=== PATIENT | male | born 1960 | race Caucasian/White ===

== ENCOUNTER 2019-12-15 13:14 | Emergency (ER) | payer OTHER, SELFPAY ==
[~2019-12-15] VITALS: Ht 175.3 cm; Wt 90.7 kg
[2019-12-15 13:24] VITALS: Ht 175.3 cm; Wt 90.7 kg
[2019-12-15 14:37] LABS: BASOPHIL % 0.6 % (0-2); PLATELET COUNT 250 x10^3mcL (130-400); RED CELL DISTRIBUTION WIDTH 13.5 % (11.5-14.5)
[2019-12-15 15:06] LABS: CALCIUM 9.3 mg/dL (8.5-10.1); CARBON DIOXIDE 25.6 mmol/L (21-32); CHLORIDE SERUM 106 mmol/L (98-107); GFR1 > 60 mL/min; GLUCOSE SERUM 136 mg/dL (74-106); POTASSIUM SERUM 4.3 mmol/L (3.5-5.1); SODIUM SERUM 141 mmol/L (136-145)
[2019-12-15 15:12] LABS: ALBUMIN 3.6 g/dL (3.4-5.0); ALKALINE PHOSPHATASE 71 U/L (46-116); ALT/SGPT 32 U/L (16-63); AST/SGOT 10 U/L (15-37); BILIRUBIN TOTAL 0.85 mg/dL (0.20-1.00); LACTIC DEHYDROGENASE (LDH) 156 U/L (100-190); TOTAL PROTEIN, SERUM 6.9 g/dL (6.4-8.2)
[2019-12-15 15:14] LABS: C REACTIVE PROTEIN < 0.2 mg/dL (<=0.9)
[2019-12-15 15:55] VITALS: BP 108/62
== END 2019-12-15 15:55 | disposition home or self-care (01) ==
LOC: ED 13:14
PROVIDERS: Emergency Medicine
DX: R06.02 Shortness of breath (principal); R19.7 Diarrhea, unspecified; E11.9 Type 2 diabetes mellitus without complications; I10 Essential (primary) hypertension; E78.00 Pure hypercholesterolemia, unspecified; Z20.828 Contact with and (suspected) exposure to other viral communicable diseases
CPT/HCPCS: 36415; 36600; 83880; 85378; 87804; C9803-CS; Q0092; U0003-CS